=== PATIENT | female | born 1990 | race Caucasian/White ===

== ENCOUNTER 2017-07-19 15:13 | Emergency (ER) | payer MEDICAID, OTHER ==
[2017-07-19 15:13] VITALS: BMI 29.8
[2017-07-19 15:33] VITALS: TEMP 98.6; O2SAT 100
--- NOTE | 2017-07-19 16:11 | C.PDOC ---
Time Seen by Provider: 07/19/17 16:01 Chief Complaint (Nursing): Abdominal Pain Past Medical History Vital Signs: Last Vital Signs Temp 98.6 F 07/19/17 15:29 Pulse 80 07/19/17 15:29 Resp 18 07/19/17 15:29 BP 107/66 07/19/17 15:29 Pulse Ox 100 07/19/17 15:29 - [facility] Procedures EXTRACTION OF POC, LOW CERVICAL, OPEN APPROACH (05/24/16) Family History: States: Unknown Family Hx - Social History Hx Alcohol Use: No Hx Substance Use: Yes (STOPPED SINCE ) - Immunization History Hx Tetanus Toxoid Vaccination: No Hx Influenza Vaccination: No Hx Pneumococcal Vaccination: No ED Course And Treatment O2 Sat by Pulse Oximetry: 100 Disposition - Disposition
--- NOTE | 2017-07-19 16:17 | C.PDOC ---
History Of Present Illness <Jennifer Groves - Last Filed: 07/19/17 17:48> <Leticia Ramos - Last Filed: 07/19/17 23:53> 27-YEAR-OLD FEMALE, PRESENTS TO THE EMERGENCY DEPARTMENT WITH COMPLAINTS OF WORSENING RUQ AND RIGHT FLANK PAIN FOR THE PAST TWO DAYS. PATIENT NOTES PAIN WAS INITIALLY IN R FLANK, BUT NOW RADIATES TO R GROIN. STATES HER PERIOD IS LATE , BUT IS NOW HAVING SPOTTING. ASSOCIATED SYMPTOMS INCLUDE NAUSEA AND OCCASIONAL DYSURIA. PT NOTES PRIOR SUGRICAL HX OF C SECTION. DENIES DIARRHEA, FEVERS, CHEST PAIN OR SHORTNESS OF BREATH. (GermainJennifer) History Per: Patient History/Exam Limitations: no limitations Onset/Duration Of Symptoms: Days Current Symptoms Are (Timing): Still Present Severity: Moderate <Jennifer Groves - Last Filed: 07/19/17 17:48> <Leticia Ramos - Last Filed: 07/19/17 23:53> Time Seen by Provider: 07/19/17 16:01 Chief Complaint (Nursing): Abdominal Pain Past Medical History Reviewed: Historical Data, Nursing Documentation, Vital Signs Family History: States: No Known Family Hx - Social History Hx Alcohol Use: No Hx Substance Use: Yes (STOPPED SINCE ) - Immunization History Hx Tetanus Toxoid Vaccination: No Hx Influenza Vaccination: No Hx Pneumococcal Vaccination: No <Jennifer Groves - Last Filed: 07/19/17 17:48> Vital Signs: Last Vital Signs Temp 98.6 F 07/19/17 15:29 Pulse 88 07/19/17 19:06 Resp 16 07/19/17 19:06 BP 125/82 07/19/17 19:06 Pulse Ox 100 07/19/17 19:06 - [facility] Procedures EXTRACTION OF POC, LOW CERVICAL, OPEN APPROACH (05/24/16) Review Of Systems Except As Marked, All Systems Reviewed And Found Negative. Constitutional: Negative for: Fever, Chills Cardiovascular: Negative for: Chest Pain Respiratory: Negative for: Shortness of Breath Gastrointestinal: Positive for: Nausea, Abdominal Pain. Negative for: Vomiting Genitourinary: Positive for: Dysuria, Vaginal Bleeding Musculoskeletal: Positive for: Back Pain Neurological: Negative for: Headache, Dizziness <Jennifer Groves - Last Filed: 07/19/17 17:48> Physical Exam - Physical Exam Appears: Non-toxic, No Acute Distress Skin: Warm, Dry, No Rash Head: Atraumatic, Normacephalic Eye(s): bilateral: Normal Inspection, PERRL, EOMI Nose: Normal Oral Mucosa: Moist Neck: Normal ROM Chest: Symmetrical Cardiovascular: Rhythm Regular, No Murmur Respiratory: Normal Breath Sounds, No Accessory Muscle Use Extremity: Normal ROM Neurological/Psych: Oriented x3, Normal Speech <Jennifer Groves - Last Filed: 07/19/17 17:48> ED Course And Treatment - Laboratory Results Result Diagrams: 07/19/17 17:00 07/19/17 17:00 O2 Sat by Pulse Oximetry: 100 <Jennifer Groves - Last Filed: 07/19/17 17:48> - Laboratory Results Result Diagrams: 07/19/17 17:00 07/19/17 17:00 Progress Note: Pt was endorsed to me by Dr Groves.Sign out was to check US to r/o ectopic <Leticia Ramos - Last Filed: 07/19/17 23:53> Disposition Counseled Patient/Family Regarding: Studies Performed, Diagnosis - Disposition Disposition Time: 18:00 <Jennifer Groves - Last Filed: 07/19/17 17:48> <Leticia Ramos - Last Filed: 07/19/17 23:53> - Disposition Referrals: Smita Herron MD [Staff Provider] - Disposition: HOME/ ROUTINE Condition: GOOD Additional Instructions: f/u with OB for further mgmt Instructions: (ED) Forms: [facility] (Cymro) - Clinical Impression Clinical Impression: Abdominal pain, - Scribe Statement The provider has reviewed the documentation as recorded by the Scribe (January Quezada) <Jennifer Groves - Last Filed: 07/19/17 17:48> <Leticia Ramos - Last Filed: 07/19/17 23:53> - Scribe Statement All medical record entries made by the Scribe were at my direction and personally dictated by me. I have reviewed the chart and agree that the record accurately reflects my personal performance of the history, physical exam, medical decision making, and the department course for this patient. I have also personally directed, reviewed, and agree with the discharge instructions and disposition. (Jennifer Groves) Physician Patient Turnover Patient Signed Over To: Leticia Ramos Handoff Comments: FU US, DISPO <Jennifer Groves - Last Filed: 07/19/17 17:48>
[2017-07-19] MEDS ORDERED: Naloxone 0.4 mg/ml Inj (Adult) ONE (16:30)
[2017-07-19 16:31] LABS: HCG,QUALITATIVE URINE POSITIVE (NEGATIVE)
[2017-07-19 16:51] LABS: SQUAMOUS EPITHIAL 5 /hpf (0-5); URINE BACTERIA OCC (<OCC); URINE BILIRUBIN NEGATIVE (NEGATIVE); URINE BLOOD NEGATIVE (NEGATIVE); URINE CLARITY Clear (Clear); URINE COLOR Yellow (YELLOW); URINE GLUCOSE (UA) NORMAL (Normal); URINE LEUKOCYTE ESTERASE NEG Leu/uL (Negative); URINE NITRATE NEGATIVE (NEGATIVE); URINE PROTEIN NEGATIVE (NEGATIVE)
[2017-07-19 17:06] LABS: BASO # 0.1 K/uL (0.0-0.2); BASO % 0.6 % (0.0-2.0); EOS # 0.1 K/uL (0.0-0.7); EOS % 0.7 % (0.0-4.0); HEMOGLOBIN 13.1 g/dL (11.0-16.0); LYMPH # 2.9 K/uL (1.0-4.3); LYMPH % 28.6 % (20.0-40.0); MEAN CELL VOLUME 97.2 fL (81.0-99.0); MEAN CORPUSCULAR HEMOGLOBIN 32.3 pg (27.0-31.0); MEAN CORPUSCULAR HGB CONC 33.2 g/dL (33.0-37.0); MEAN PLATELET VOLUME 8.3 fL (7.2-11.7); MONO # 1.3 K/uL (0.0-0.8); MONO % 12.9 % (0.0-10.0); NEUT # 5.7 K/uL (1.8-7.0); NEUT % 57.2 % (50.0-75.0); RBC 4.07 Mil/uL (3.80-5.20); RED CELL DISTRIBUTION WIDTH 12.8 % (11.5-14.5)
[2017-07-19 17:37] LABS: ALB/GLOB RATIO 1.2 (1.0-2.1); ALBUMIN 4.2 g/dL (3.5-5.0); ALT/SGPT 17 U/L (9-52); AST/SGOT 22 U/L (14-36); BLOOD UREA NITROGEN 6 mg/dL (7-17); CALCIUM 8.3 mg/dl (8.6-10.4); GFR AFRICAN-AMERICAN > 60; GFR NON-AFRICAN AMERICAN > 60
[2017-07-19 19:06] VITALS: BP 125/82; PULSE 88; RESP 16
--- NOTE | 2017-07-19 19:31 | US ---
EXAM: US , Transvaginal CLINICAL HISTORY: 27 years old, female; Pain; complicated by abdominal or pelvic pain; Right lower quadrant; First trimester; Gestational age or lmp: 12-4-17; ; Additional info: Abd pain, positive urine preg. TECHNIQUE: Real-time transvaginal obstetrical ultrasound of the maternal pelvis and a first trimester with image documentation. Transvaginal imaging was used for better evaluation of the fetus and adnexa. COMPARISON: No relevant prior studies available. FINDINGS: Gestation: The gestational sac measures 3 x 1.9 x 1.9 cm for a mean sac diameter 2.3 cm for menstrual age of 6 weeks and 6 days. A yolk sac is present. There is a pole with a crown-rump length measurement of 0.55 cm for a menstrual age of 6 weeks and 2 days. Cardiac activity is noted at a rate of 125 beats per minute. Placenta/amniotic fluid: Cannot be adequately evaluated due to the early gestational age. Uterus/cervix: The cervix was closed at the time of the examination. Cervix measures 3.3 cm in length. No myometrial mass. Ovaries: The right ovary measures 3 x 2.7 x 2.6 cm and contains a 1.5 cm complex hypoechoic cyst. Blood flow is demonstrated within the right ovary on color Doppler examination. The left ovary measures 2.8 x 2.5 x 2.4 cm and contains a complex echogenic mass measuring 1.8 cm in maximum diameter. On color Doppler examination, a halo of blood flow is noted surrounding the echogenic mass suggesting this as a corpus luteum cyst. Free fluid: A small amount of free fluid is seen in the posterior cul-de-sac. IMPRESSION: 1. Single live intrauterine with an estimated menstrual age of 6 weeks and 4 days plus or -0 weeks and 3 days. Expected date of confinement is 03/10/2018. EXAM: US First Trimester, Transabdominal EXAM DATE/TIME: Exam ordered 07/19/2017 4:46 PM CLINICAL HISTORY: 27 years old, female; Pain; complicated by abdominal or pelvic pain; Right lower quadrant; First trimester; Gestational age or lmp: 12-4-17; ; Additional info: Abd pain, positive urine preg. TECHNIQUE: Real-time transabdominal obstetrical ultrasound of the maternal pelvis and a first trimester with image documentation. COMPARISON: US - PREG 1ST TRIMESTER/OB TV 2015-10-27 16:24 FINDINGS: Gestation: There is a single intrauterine gestational sac. Sac measures 2.9 x 1.8 by 1.8 cm. A pole is not seen. Placenta/amniotic fluid: Cannot be adequately evaluated due to the early gestational age. Uterus/cervix: The uterus measures 8.8 x 5.7 x 5.6 cm. No myometrial mass. Ovaries: The right ovary measures 3.3 x 3 x 3.3 cm and contains a 1.2 cm hypoechoic cyst. Blood flow is demonstrated within the right ovary on pulsed Doppler and color Doppler examination. Left ovary is not seen as separate structure. Free fluid: No free fluid. IMPRESSION: 1. Single intrauterine gestational sac. The sac was not dated on the transabdominal portion of the examination. Please see the report on the transvaginal study done at the same time for dating of . 2. Nonvisualization of the left ovary
== END 2017-07-19 19:17 | disposition home or self-care (01) ==
LOC: C.ER 15:13
DX: O26.891 Other specified pregnancy related conditions, first trimester (principal); Z3A.01 Less than 8 weeks gestation of pregnancy; R10.9 Unspecified abdominal pain

== ENCOUNTER 2017-09-06 14:10 | Emergency (ER) | payer OTHER ==
[2017-09-06 14:10] VITALS: BMI 29.8
[2017-09-06 14:22] VITALS: RESP 18; TEMP 98.1
--- NOTE | 2017-09-06 14:48 | C.PDOC ---
History Of Present Illness <Hodan Starkey - Last Filed: 09/06/17 17:54> <Demarco Reed - Last Filed: 09/08/17 18:16> CC: "vaginal bleeding" HPI: 27 year old female at 12 weeks 5 days presents presents to the ED for vaginal bleeding. She states the FDLP is 06/09/17. Patient states the vaginal bleeding started 20 minutes ago. She states she is having clots. She states she does have lower pelvic pain that feels like cramps and it is currently a 10/10. She states she has nausea and chills. She denies shortness of breath, chest pain, vomiting, fever, diarrhea, or constipation. PMD: denies OBGYN: Dr. Flaquita FLETCHER History: C-sections x2 - 2006 and 2017; full term pregnancies - both high risk patient states she had spotting during those pregnancies; 2 abortions 2004 and 2006; miscarriage 2000 Medical History: denies Surgical History: x2; 3 D&Cs 2000, 2004, 2006 Medications: vitamins Allergies: NKDA (Hodan Starkey) <Hodan Starkey - Last Filed: 09/06/17 17:54> <Demarco Reed - Last Filed: 09/08/17 18:16> Time Seen by Provider: 09/06/17 14:30 Chief Complaint (Nursing): Female Genitourinary Past Medical History Family History: States: Unknown Family Hx - Social History Hx Alcohol Use: No Hx Substance Use: Yes (STOPPED SINCE ) - Immunization History Hx Tetanus Toxoid Vaccination: No Hx Influenza Vaccination: No Hx Pneumococcal Vaccination: No <Hodan Starkey - Last Filed: 09/06/17 17:54> Vital Signs: Last Vital Signs Temp 98.1 F 09/06/17 18:05 Pulse 80 09/06/17 18:05 Resp 18 09/06/17 18:05 BP 134/78 09/06/17 18:05 Pulse Ox 99 09/06/17 18:05 - [facility] Procedures EXTRACTION OF POC, LOW CERVICAL, OPEN APPROACH (05/24/16) Review Of Systems Constitutional: Positive for: Chills. Negative for: Fever Cardiovascular: Negative for: Chest Pain, Palpitations Respiratory: Negative for: Shortness of Breath Gastrointestinal: Positive for: Nausea. Negative for: Vomiting Genitourinary: Positive for: Vaginal Bleeding, Pelvic Pain <LalitoLaloHodanfrances Larose - Last Filed: 09/06/17 17:54> Physical Exam - Physical Exam Appears: Non-toxic, In Acute Distress Skin: Normal Color, Dry Head: Atraumatic, Normacephalic Eye(s): bilateral: Normal Inspection, PERRL, EOMI Oral Mucosa: Dry Cardiovascular: Rhythm Regular, No Murmur Respiratory: Normal Breath Sounds, No Accessory Muscle Use, No Rhonchi, No Wheezing Gastrointestinal/Abdominal: Normal Exam, Bowel Sounds (normal), Soft, No Tenderness Pelvic: Vaginal Bleeding, No Vaginal Discharge, Cervical Motion Tenderness, Cervix Open, Other (Lens Inserter in the room; pelvic pain ) Neurological/Psych: Oriented x3, Normal Speech, Normal Cognition <Hodan Starkey - Last Filed: 09/06/17 17:54> ED Course And Treatment - Laboratory Results Result Diagrams: 09/06/17 15:02 09/06/17 15:02 ECG: Interpreted By Me, Viewed By Me ECG Rhythm: Sinus Rhythm O2 Sat by Pulse Oximetry: 100 <Hodan Starkey - Last Filed: 09/06/17 17:54> - Laboratory Results Result Diagrams: 09/06/17 15:02 09/06/17 15:02 <Demarco Reed M - Last Filed: 09/08/17 18:16> Medical Decision Making <Hodan Starkey - Last Filed: 09/06/17 17:54> <Demarco Reed M - Last Filed: 09/08/17 18:16> Medical Decision Making: Vaginal Bleeding secondary to threatened Type and Screen: O+ - cbc: H/H 12.3/35.3; WBC 6.5 - cmp: WNL - UA : negative - vaginal US: Live single intrauterine with estimated gestational age 13 weeks 3 days; heart rate 157.7bpm. Cervical os is closed. Cervial length measures about 3.1cm. Probable subchorionic hemorrhage measuring about 4.1x0.6x5.6cm. Placenta at this time appears to cover the internal cervical os. - beta HC Patient states she has an obgyn appointment with Dr. Sams tomorrow at [facility]. Discussed with patient nothing in the vagina and for patient to have pelvic rest. Discussed with patient to return to the ER if vaginal bleeding returns or worsens. Patient states she understands. (Hodan Starkey) discussed with resident and cervical os is closed. Cervical length as documented. Will discharge patient home to follow up with ob (Demarco Reed) Disposition Discussed With Dr.: Demarco Reed Doctor Will See Patient In The: ED <Hodan Starkey - Last Filed: 09/06/17 17:54> Counseled Patient/Family Regarding: Studies Performed, Diagnosis, Need For Followup - Disposition Disposition Time: 17:41 <Demarco Reed - Last Filed: 09/08/17 18:16> - Disposition Disposition: HOME/ ROUTINE Condition: STABLE Additional Instructions: follow up with your doctor in 2 days call to make an appointment take medications as prescribed return to ER if symptoms worsens or progress pelvic rest drink plenty of fluids Instructions: Threatened Miscarriage Forms: [facility] (Macanese), General Discharge Instructions - Clinical Impression Clinical Impression: Threatened - PA / FITTER TACKER / Resident Statement MD/DO has reviewed & agrees with the documentation as recorded. MD/DO has examined the patient and agrees with the treatment plan. <Hodan Starkey - Last Filed: 09/06/17 17:54>
[2017-09-06] MEDS ORDERED: Sodium Chloride 0.9% 1,000 ML IV ONE (15:04)
[2017-09-06 15:07] LABS: BASO # 0.1 K/uL (0.0-0.2); BASO % 0.8 % (0.0-2.0); EOS % 0.6 % (0.0-4.0); HEMOGLOBIN 12.3 g/dL (11.0-16.0); LYMPH # 1.7 K/uL (1.0-4.3); LYMPH % 25.7 % (20.0-40.0); MEAN CELL VOLUME 95.5 fL (81.0-99.0); MEAN CORPUSCULAR HEMOGLOBIN 33.2 pg (27.0-31.0); MEAN CORPUSCULAR HGB CONC 34.8 g/dL (33.0-37.0); MEAN PLATELET VOLUME 7.9 fL (7.2-11.7); MONO # 0.6 K/uL (0.0-0.8); MONO % 8.8 % (0.0-10.0); NEUT # 4.1 K/uL (1.8-7.0); NEUT % 64.1 % (50.0-75.0); RBC 3.7 Mil/uL (3.80-5.20); RED CELL DISTRIBUTION WIDTH 12.5 % (11.5-14.5); WHITE BLOOD COUNT 6.5 K/uL (4.8-10.8)
[2017-09-06] MEDS ORDERED: Sodium Chloride 0.9% 1,000 ML ONE (15:14)
[2017-09-06 15:20] LABS: ALB/GLOB RATIO 1.3 (1.0-2.1); ALBUMIN 4.1 g/dL (3.5-5.0); ALT/SGPT 12 U/L (9-52); AST/SGOT 17 U/L (14-36); BLOOD UREA NITROGEN 4 mg/dL (7-17); CALCIUM 9.1 mg/dl (8.6-10.4); GFR AFRICAN-AMERICAN > 60; GFR NON-AFRICAN AMERICAN > 60
[2017-09-06 15:22] LABS: SQUAMOUS EPITHIAL 7 /hpf (0-5); URINE BILIRUBIN NEGATIVE (NEGATIVE); URINE BLOOD 3+ (NEGATIVE); URINE CLARITY Hazy (Clear); URINE COLOR Yellow (YELLOW); URINE GLUCOSE (UA) NORMAL (Normal); URINE LEUKOCYTE ESTERASE NEG Leu/uL (Negative); URINE NITRATE NEGATIVE (NEGATIVE); URINE PROTEIN 1+ mg/dL (NEGATIVE); URINE UROBILINOGEN NORMAL mg/dL (0.2-1.0)
[2017-09-06 16:09] LABS: URINE BACTERIA RARE (<OCC)
--- NOTE | 2017-09-06 17:23 | US ---
Indication: Vaginal bleeding, patient 12 weeks 5 days Comparison: 1st trimester/Ob ultrasound performed 07/19/17 Technique: Transabdominal pelvic ultrasound. Findings: The uterus measures approximately 14.3 x 7.1 x 10.0 cm. Anteverted. Cervix length measures approximately 3.1 cm. The placenta at this time appears to cover the internal cervical os. There is a single intrauterine fetus present. Yolk sac is not seen. The crown-rump length measures 7.3 cm and is compatible with a gestational age of 13 weeks 3 days. There is heart motion which measured 157.7 BPM. 4.1 x 0.6 x 5.6 cm probable subchorionic hemorrhage. The right ovary measures 2.6 x 1.8 x 2.5 cm. The left ovary measures 2.3 x 2.0 x 2.4 cm. Blood flow was demonstrated to both ovaries. Impression: Live single intrauterine with estimated gestational age 13 weeks 3 days. heart rate 157.7 bpm. Advise an anomaly screen at 16-18 weeks gestational age Probable subchorionic hemorrhage measuring approximately 4.1 x 0.6 x 5.6 cm. The placenta at this time appears to cover the internal cervical os. Follow-up in the 2nd trimester is required for further assessment. Recommend TUBE FILLER follow-up. Findings discussed with Dr. Starkey on 09/06/17 at 5:18 p.m.
[2017-09-06 18:06] VITALS: BP 134/78; PULSE 80; O2SAT 99
--- NOTE | 2017-09-08 08:55 | CARD ---
APPROVED REPORT EKG Measurement Heart [id number] NM [id number] <Conclusion> Normal sinus rhythm Normal ECG
== END 2017-09-06 18:09 | disposition home or self-care (01) ==
LOC: C.ER 14:10
DX: O20.0 Threatened abortion (principal); Z3A.13 13 weeks gestation of pregnancy
CPT/HCPCS: 76801; 80053; 81001; 84702; 85025; 86850; 86900; 93005; 96360; 99284; J7040

== ENCOUNTER 2018-01-19 15:48 | Emergency (ER) | payer OTHER ==
--- NOTE | 2018-01-19 16:55 | OBHP ---
Datetime: 01/19/2018 16:44 IP Adm Impression: , intrauterine Admit Comment, IP Provider: 28 y/o @ 32.5 wks GA 2 prior cxs c/o of vaginal spotting, dark b rown this morning wiht wiping, no pain, ctx, lof, +FM. pt reports uninary freuqnecy, denies dysuira, urgency, fever, chils, nausea, vomiting, constiptaon. pt preorts last intercuse 2 weeks ago. pt dnies any flank pain, discharge, odor, itching. OB: FT CxS x 2 marginal previus, 8lbs, SAB x 1, ETOP x 1 MEDIA PRODUCER: denies hx of abnormla pap, STI, hx of fibroids PMH: denies PSH: Cxs x 2, DxC x 2 FHX: non contribory MEDS: PNV SHX: negative, etoh/tobacco/drugs NKDA A/P 28 y/o @ 32.5 wks GA with vaginal discharge f/u UA, CBC NST Blood type O+ from prior records reviewed declined TVUS will reevalute Pelvic Type - PN: Adequate Extremities - PN: Normal Abdomen - PN: Normal Back - PN: Normal Breast - PN: Not Done Lungs - PN: Normal Heart - PN: Normal Thyroid - PN: Not Done Neurologic - PN: Normal HEENT - PN: Normal General - PN: Normal Presentation-Admit: Vertex FHR - Baseline A Provider: 150 Membranes, Provider: Intact Contraction Comments Provider: none Comments, ACOG Physical Exam: ABD: soft, NT, ND no palpable ctx VE: External genita; No rgoss abnormali, no blood Vagina; small dark brown vaginal discharge, no blood, no clots Cervix; closed, long, posterioer, non tender ,no idscharge, no odor Uterus: no palpable ctx, non tender Bedside Ultrasound: Anterior lateral placenta, no evidence of retroplacental clot , pt infomred lm ited with abdoinla vs transvagian us, delcined. no gross evidnece of previa (inofmred of limited with tranabominal), MVP 4cm, bpp 8/8 Gestation - Est Wks by US: 32.5 EGA AdmitDate IP: 32.5 Vital Signs Provider: Reviewed IP Chief Complaint: Vaginal bleeding NICHD Variability Prov Fetus A: Moderate 6-25bpm FHR Category Provider Fetus A: Category I NICHD Decel Fetus A IP Provider: None Dilatation, Provider: 0 Effacement, Provider: 0 Station, Provider: -3 Genitourinary Exam: Normal DTRs - PN: Not Done
[2018-01-19 17:01] LABS: BASO % 0.2 % (0.0-2.0); EOS # 0.1 K/uL (0.0-0.7); EOS % 0.7 % (0.0-4.0); LYMPH # 1.7 K/uL (1.0-4.3); LYMPH % 19.6 % (20.0-40.0); MEAN CELL VOLUME 91.1 fL (81.0-99.0); MEAN CORPUSCULAR HEMOGLOBIN 31.4 pg (27.0-31.0); MEAN CORPUSCULAR HGB CONC 34.4 g/dL (33.0-37.0); MEAN PLATELET VOLUME 7.7 fL (7.2-11.7); MONO # 0.8 K/uL (0.0-0.8); MONO % 8.7 % (0.0-10.0); NEUT # 6.1 K/uL (1.8-7.0); NEUT % 70.8 % (50.0-75.0); NRBC % 0.1 % (0.0-2.0); RBC 3.84 Mil/uL (3.80-5.20); RED CELL DISTRIBUTION WIDTH 11.5 % (11.5-14.5); WHITE BLOOD COUNT 8.6 K/uL (4.8-10.8)
[2018-01-19 17:07] LABS: SQUAMOUS EPITHIAL 12 /hpf (0-5); URINE BACTERIA RARE (<OCC); URINE BILIRUBIN NEGATIVE (NEGATIVE); URINE BLOOD 2+ (NEGATIVE); URINE CLARITY Clear (Clear); URINE COLOR Yellow (YELLOW); URINE GLUCOSE (UA) NORMAL (Normal); URINE LEUKOCYTE ESTERASE 1+ Leu/uL (Negative); URINE PROTEIN NEGATIVE (NEGATIVE)
[2018-01-19 21:54] VITALS: BP 119/76; PULSE 106; RESP 18; TEMP 97.9; O2SAT 100
== END 2018-01-19 17:40 | disposition home or self-care (01) ==
LOC: C.EROB 15:48
DX: O26.893 Other specified pregnancy related conditions, third trimester (principal); Z3A.32 32 weeks gestation of pregnancy; N89.8 Other specified noninflammatory disorders of vagina

== ENCOUNTER 2018-07-13 15:59 | Emergency (ER) | payer OTHER ==
[2018-07-13 16:00] VITALS: BMI 29.8
[2018-07-13 16:32] VITALS: BP 102/73; PULSE 111; RESP 20; TEMP 99.8; O2SAT 98
[2018-07-13] MEDS ORDERED: Naproxen 550 mg Tab PO STA (16:52)
--- NOTE | 2018-07-13 16:54 | C.PDOC ---
History Of Present Illness 28 y/o female pt presents to the ER c/o fever for x1 day. Associated sx includes body aches, chills, cough and running nose. Pt reports that her son was diagnosed with influenza A and she believes she caught it. Pt denies any hx. Time Seen by Provider: 07/13/18 16:33 Chief Complaint (Nursing): Flu-like Symptoms History Per: Patient History/Exam Limitations: no limitations Onset/Duration Of Symptoms: Days (x1) Current Symptoms Are (Timing): Still Present Sick Contacts (Context): Family Member(s) (son) Past Medical History Reviewed: Historical Data, Nursing Documentation, Vital Signs Vital Signs: Last Vital Signs Temp 99.8 F H 07/13/18 16:20 Pulse 111 H 07/13/18 16:20 Resp 20 07/13/18 16:20 BP 102/73 07/13/18 16:20 Pulse Ox 98 07/13/18 16:20 - [facility] Procedures EXTRACTION OF POC, LOW CERVICAL, OPEN APPROACH (05/24/16) Family History: States: Unknown Family Hx - Social History Hx Alcohol Use: No Hx Substance Use: Yes (STOPPED SINCE ) - Immunization History Hx Tetanus Toxoid Vaccination: No Hx Influenza Vaccination: No Hx Pneumococcal Vaccination: No Review Of Systems Constitutional: Positive for: Fever, Chills, Other (body aches ) ENT: Positive for: Nose Discharge Respiratory: Positive for: Cough Physical Exam - Physical Exam Appears: Non-toxic, Other (mildy uncomfortable; coughing ) Skin: Warm, Dry, No Rash Ear(s): Bilateral: Normal Nose: Normal Oral Mucosa: Moist Throat: Normal, No Erythema Chest: Symmetrical Cardiovascular: Rhythm Regular Respiratory: Normal Breath Sounds, No Rales, No Rhonchi, No Wheezing Gastrointestinal/Abdominal: Soft, No Tenderness Neurological/Psych: Oriented x3, Normal Speech ED Course And Treatment O2 Sat by Pulse Oximetry: 98 (RA) Pulse Ox Interpretation: Normal Progress Note: Plans: -- naproxen. -- Tamiflu. -- rx for naproxen, tamiflu and tessalon. Reassess: Patient is resting comfortably, tolerating PO, and is afebrile at this time. Clinical signs and symptoms are not suggestive of sepsis, meningitis, UTI, pneumonia, intra-abdominal pathology, or cellulitis. Patient will be discharged home, and instructed to follow up with his/her physician in 1-2 days without fail. Patient was instructed to return for any worsening symptoms, persistent fever, neck pain, rash, abdominal pain, or vomiting. Disposition Counseled Patient/Family Regarding: Diagnosis, Need For Followup, Rx Given - Disposition Referrals: [facility] [Outside] Disposition: HOME/ ROUTINE Disposition Time: 17:10 Condition: STABLE Additional Instructions: FOLLOW UP WITH YOUR DOCTOR/CLINIC IN 1-2 DAYS USE MEDICATIONS DIRECTED DRINK PLENTY OF FLUIDS AND GET REST RETURN TO ER IF SYMPTOMS WORSEN Prescriptions: Benzonatate [Tessalon Perles] 100 mg PO BID PRN #15 sgl PRN Reason: Cough Naproxen 375 mg PO BID PRN #20 tablet PRN Reason: pain Oseltamivir Phosphate [Tamiflu] 75 mg PO BID #10 capsule Instructions: Flu, Adult (DC) Forms: [facility] (Occitan), Work Excuse Print Language: EGYPTIAN - POA Present On Arrival: None - Clinical Impression Clinical Impression: Influenza - Scribe Statement The provider has reviewed the documentation as recorded by the Alex Lowe Do Provider Attestation: All medical record entries made by the Scribe were at my direction and personally dictated by me. I have reviewed the chart and agree that the record accurately reflects my personal performance of the history, physical exam, medical decision making, and the department course for this patient. I have also personally directed, reviewed, and agree with the discharge instructions and disposition.
[2018-07-13] MEDS ORDERED: Naproxen 550 mg Tab PO ONE (17:10)
== END 2018-07-13 17:09 | disposition home or self-care (01) ==
LOC: C.ER 15:59
DX: J11.1 Influenza due to unidentified influenza virus with other respiratory manifestations (principal)